=== PATIENT | female | born 1985 | race Caucasian/White ===

== ENCOUNTER → 2020-01-30 | Outpatient (CLI) | payer SELFPAY ==
[~2020-01-30] MED LIST: MAPA500T2 PO; MOM30SS PO; PREN29TA4 PO; PRIMROSE OIL
== END ==
LOC: M LABSMTC 13:34
PROVIDERS: ATTEND Pediatrics
DX: Z20.828 Contact with and (suspected) exposure to other viral communicable diseases (principal)

== ENCOUNTER → 2020-11-14 | Outpatient (CLI) | payer BC ==
[2020-11-14 13:54] LABS: HEMOGLOBIN 13.7 g/dl (12.0-15.5); MEAN CORPUSCULAR HEMOGLOBIN 32.6 pg (27.0-33.0); MEAN CORPUSCULAR HGB CONC 33.4 g/dl (32.0-36.5); MEAN CORPUSCULAR VOLUME 97.6 fl (80.0-96.0); PLATELET COUNT, AUTOMATED 258 10^3/uL (150-450); WHITE BLOOD COUNT 4.9 10^3/uL (4.0-10.0)
[2020-11-14 14:33] LABS: FREE T4 1.09 NG/DL (0.76-1.46); PROLACTIN 2.9 NG/ML; THYROID STIMULATING HORMONE 0.867 uIU/ML (0.358-3.740)
== END ==
LOC: M PLALAB 09:48
PROVIDERS: ATTEND Advanced Practice Midwife
DX: N92.0 Excessive and frequent menstruation with regular cycle (principal)
CPT/HCPCS: 36415; 82627; 83525; 84146; 84402; 84403; 84439; 84443; 85027; G0123

== ENCOUNTER → 2020-11-24 | Outpatient (CLI) | payer BC ==
--- NOTE | 2020-11-24 13:59 | REP ---
INDICATION: IRREGULAR MENSTRUAL BLEEDING MENORRHAGIA COMPARISON: None. TECHNIQUE: Transabdominal pelvic ultrasound followed by transvaginal examination for better evaluation of the endometrium and adnexa with color Doppler evaluation of the ovaries. FINDINGS: Bladder is unremarkable and measures 11.0 x 4.5 x 9.4 cm. Normal anteverted uterus measures 9.7 x 4.7 x 5.3 cm. The endometrial complex measures 8.4 mm thickness. No discrete uterine or endometrial abnormalities are appreciated. Bilateral ovaries are normal in appearance and vascularity without evidence for torsion. Right ovary measures 2.5 x 2.3 x 2.3 cm; R I = 0.52. Left ovary measures 2.0 x 1.5 x 2.2 cm; R I = 0.54. Incidental 1.3 cm involuting hemorrhagic cyst in the right ovary. No pelvic fluid or adnexal mass lesion. IMPRESSION: Normal pelvic ultrasound. <Electronically signed by Marlon Nash > 11/24/20 [id number]
== END ==
LOC: M WHC 12:50
PROVIDERS: ATTEND Advanced Practice Midwife
DX: N92.6 Irregular menstruation, unspecified (principal); N92.0 Excessive and frequent menstruation with regular cycle

== ENCOUNTER → 2021-01-27 | Outpatient (REF) | payer BC | LOC: M SFHCWAGY 13:28 | PROVIDERS: ATTEND Advanced Practice Midwife | DX: R87.615 Unsatisfactory cytologic smear of cervix (principal); Z12.4 Encounter for screening for malignant neoplasm of cervix ==